=== PATIENT | male | born 1980 | race Caucasian/White ===

== ENCOUNTER 2018-11-22 16:04 | Emergency (ER) | payer OTHER ==
[2018-11-22] MEDS: KETOROLAC 60 MG INJ IM (16:48)
[2018-11-22] MEDS: OXYCODONE/ACETAMINOPHEN (10/325) TAB PO (17:02)
[2018-11-22] MEDS: ONDANSETRON (ODT) 4 MG TAB ODT (18:13)
== END 2018-11-22 20:45 | disposition home or self-care (01) ==
LOC: FTE 16:04
DX: S82.141A Displaced bicondylar fracture of right tibia, initial encounter for closed fracture (principal); S32.018A Other fracture of first lumbar vertebra, initial encounter for closed fracture; S32.028A Other fracture of second lumbar vertebra, initial encounter for closed fracture; S22.32XA Fracture of one rib, left side, initial encounter for closed fracture; W18.39XA Other fall on same level, initial encounter; Y92.310 Basketball court as the place of occurrence of the external cause
CPT/HCPCS: 29505; 72072; 72100; 72131; 73700; 96372; 99285-25